=== PATIENT | female | born 1990 | race Caucasian/White ===

== ENCOUNTER 2024-01-23 07:59 | Emergency (ER) | payer OTHER, SELFPAY ==
[2024-01-23 08:02] VITALS: BP 132/89
--- NOTE | 2024-01-23 08:22 | ED.GENMED ---
History of Present Illness
General
Chief Complaint: Musculo-Skeletal Complaint
Source: patient
Exam Limitations: none
Time Seen by Provider: 01/23/24 08:08
Nursing documentation reviewed up to this point in time: agreed with
History of Present Illness
History of Present Illness:
33-year-old female with no reported chronic issues presents with a right ankle injury. Patient was playing tennis yesterday and she says she slipped on some gravel and suffered an inversion injury. She has been able to weight-bear but has had
significant pain and swelling since then so came to the emergency room for assessment. She took some NSAIDs yesterday no pain medications today.
Review of Systems
Review of Systems
All Other Systems: ROS reviewed and negative except as documented in HPI and ROS
Musculoskeletal: Reports joint pain (Ankle pain)
Phy Exam
Physical Exam
Physical Exam:
General: Well appearing and non-toxic
HEENT: protecting airway
Neck: appears supple
CV: No evidence of cyanosis
Resp: No accessory muscle use
Abd: Non-distended
Extremities: No deformities; patient has some swelling of the lateral malleolus on the right and tenderness in the posterior margin of the lateral malleolus; no significant tenderness of medial malleolus, no midfoot tenderness, no tenderness along
the fifth metatarsal; no defect in the Achilles tendon or posterior swelling; she is able to plantarflex and dorsiflex ankle with minimal discomfort but has pain on inversion and eversion; she has no tenderness of the right knee, specifically no
lateral tenderness over the proximal fibula; she has a good palpable DP and PT pulse in the right lower extremity
Neuro: Alert
Psych: Normal affect
Skin: Intact
Scores
Heart Failure Risk
Heart Failure Risk Score: Not Applicable
Heart Score for Chest Pain Patients
STEMI patient?: Not applicable
Withdrawal Assessment of Alcohol
Withdrawal Assessment Completed?: Not applicable
Course
Orders/Labs/Results
Orders:
Orders
01/23/24 08:06
Ankle, Right 3 view CR [CR Ankle - Right Min 3 Views *] Urgent
Comment:
Reason For Exam: pain and swelling
01/23/24 08:19
Ketorolac [Toradol] 30 mg IM NOW STA
Vital Signs
Initial and Last Documented VS:
Initial Vital Signs
Temp Pulse Resp BP Pulse Ox
37.0 C 92 18 132/89 100
01/23/24 08:02 01/23/24 08:02 01/23/24 08:02 01/23/24 08:02 01/23/24 08:02
Last Documented Vital Signs
Temp Pulse Resp BP Pulse Ox
37.0 C 92 18 132/89 100
01/23/24 08:02 01/23/24 08:02 01/23/24 08:02 01/23/24 08:02 01/23/24 08:02
MDM/Problems Addressed
Differential Diagnosis Includes:
Ankle sprain, ankle fracture, Achilles injury
MDM/Problems Addressed:
33-year-old female presents with a right ankle injury after inversion yesterday while playing tennis. Vitals and exam as above. Sent for an x-ray to rule out fracture. Treat with NSAIDs. Reassess after the above.
X-ray reviewed by me shows no fracture; suspect likely ankle sprain. Will place in supportive brace, recommend NSAIDs, RICE. Discharged with PCP follow-up.
*Radiology
Radiology exam reviewed: preliminary read by ED provider
*Pulse Oximetry
Patient hypoxic: no
*Critical Care Note
Total Time (30-74mins, 75-104mins- exclusive of procedures): Not Applicable
Data Reviewed
Source: patient
ED Attending Note
-
Portions of this chart may have been created with voice recognition software.� Occasional wrong word or��sound alike� substitutions may have occurred due to the inherent limitations of voice recognition software.
Discharge Plan
Departure
Patient Disposition: Home (Routine Discharge)
Date of Disposition: 01/23/24
Time of Disposition: 08:30
Patient with high blood pressure during this ER visit?: No
Discharge Problem:
Right ankle sprain
Instructions: Sprain (DC), RICE Therapy
Referrals:
Tariq Diaz MD [Active] - As needed (Orthopedist--schedule an appointment as needed for persistent symptoms )
Activity Restrictions/Additional Instructions:
You were seen in the emergency room for ankle injury. You were examined and had an x-ray which showed no broken bones. We think that this is likely a significant ankle sprain. You can weight-bear as tolerated but should do your best to rest your
ankle, keep it elevated while seated or laying, ice your ankle (15 minutes at a time) for the next few days. You should take ibuprofen 400 mg scheduled every 6 hours for the next 72 hours at which point you can take it only as needed for pain. You
can supplement with Tylenol 500 mg every 6 hours if ibuprofen is not adequate to control your symptoms. If your symptoms are not improving with conservative measures you should schedule appointment with the orthopedist for follow-up care.
Thank you for visiting the Emergency Department at [facility].
1. Please schedule a follow up appointment as directed. Call first thing tomorrow morning to make an appointment.
2. If indicated, please take your medications as instructed and indicated on discharge paperwork.
3. If any of your symptoms do not improve, or persist, or become more severe within 6-12 hours, please return to the emergency department for further care.
4. Please return to the emergency department if you develop a headache, neck pain/stiffness, fever greater than 100.4F, chest pain, shortness of breath, persistent nausea, vomiting, slurred speech, difficulty walking, numbness/tingling, weakness,
signs of infection or any other symptoms that are worrisome to you.
Please call [phone] if you have any questions.
Discharge Date and Time
Print Language: DANISH
[2024-01-23] MEDS: TORADOL 30 MG IM (08:28)
== END 2024-01-23 08:58 | disposition home or self-care (01) ==
LOC: EMR 07:59
PROVIDERS: EMERGENCY PHYSICIAN Emergency Medicine
DX: S93.401A Sprain of unspecified ligament of right ankle, initial encounter (principal); X50.1XXA Overexertion from prolonged static or awkward postures, initial encounter
CPT/HCPCS: 99284; 96372; 73610